=== PATIENT | male | born 1940 | race Asian ===

== ENCOUNTER 2022-10-08 19:45 | Emergency (ER) | payer OTHER ==
[~2022-10-08] VITALS: Ht 180.3 cm; Wt 110.2 kg
[2022-10-08 19:59] VITALS: BP 177/92; TEMP 98
[2022-10-08 20:40] LABS: PLATELET COUNT 128 K/uL (142-355)
[2022-10-08 20:43] LABS: POTASSIUM 3.3 mmol/L (3.6-5.2)
[2022-10-09] MEDS ORDERED: AMLODIPINE BESYLATE PO (10:38)
[2022-10-09] MEDS ORDERED: BREO ELLIPTA 201 INH INH (10:38)
[2022-10-09] MEDS ORDERED: BUSPIRONE10 MG PO (10:39)
[2022-10-09] MEDS ORDERED: CRANBERRY425 MG PO (10:39)
[2022-10-09] MEDS ORDERED: DQZATE100 MG PO (10:40)
[2022-10-09] MEDS ORDERED: DONEPEZIL HYDRO10 MG PO (10:40)
[2022-10-09] MEDS ORDERED: FURO40TA93 PO (10:41)
[2022-10-09] MEDS ORDERED: CARDURA4 MG PO (10:41)
[2022-10-09] MEDS ORDERED: GLIPIZIDE PO (10:42)
[2022-10-09] MEDS ORDERED: NAMENDA XR14 MG PO (10:43)
[2022-10-09] MEDS ORDERED: LATA0.00 OPTH (10:43)
[2022-10-09] MEDS ORDERED: METO-837 PO (10:44)
[2022-10-09] MEDS ORDERED: PANTOPRAZOLE 40MG TA PO (10:45)
[2022-10-09] MEDS ORDERED: MIRALAX17 GM PO (10:45)
[2022-10-09] MEDS ORDERED: CRESTOR20 MG PO (10:46)
[2022-10-09] MEDS ORDERED: QUET25TA2 PO (10:46)
[2022-10-09] MEDS ORDERED: VITAMIN D1000 UNI1 PO (10:47)
== END 2022-10-08 21:42 | disposition still patient (30) ==
LOC: ED 19:45
PROVIDERS: Emergency Medicine Emergency Medical Services
DX: R46.89 Other symptoms and signs involving appearance and behavior (principal); I10 Essential (primary) hypertension; Z11.52 Encounter for screening for COVID-19; Z04.6 Encounter for general psychiatric examination, requested by authority
CPT/HCPCS: 36415; 80053; 85027; 87635; 93005; 99283; U0003